=== PATIENT | female | born 1980 | race American Indian/Alaskan Native ===

== ENCOUNTER 2016-07-26 13:33 | Emergency (ER) | payer OTHER ==
[2016-07-26 13:45] VITALS: BMI 31.7
[2016-07-26] MEDS ORDERED: Sodium Chloride 0.9% 1,000 ML IV ONE (15:02)
[2016-07-26] MEDS ORDERED: Sodium Chloride 0.9% 1,000 ML ONE (15:22)
[2016-07-26 15:23] LABS: BASO # 0.1 K/uL (0.0-0.2); BASO % 0.6 % (0.0-2.0); EOS # 0.2 K/uL (0.0-0.7); EOS % 1.6 % (0.0-4.0); HEMATOCRIT 34.9 % (34.0-47.0); LYMPH # 3.8 K/uL (1.0-4.3); LYMPH % 38.3 % (20.0-40.0); MEAN CELL VOLUME 63.8 fL (81.0-99.0); MEAN CORPUSCULAR HEMOGLOBIN 20.9 pg (27.0-31.0); MEAN CORPUSCULAR HGB CONC 32.7 g/dL (33.0-37.0); MEAN PLATELET VOLUME 8.2 fL (7.2-11.7); MONO # 0.5 K/uL (0.0-0.8); MONO % 4.7 % (0.0-10.0); NRBC % 0.1 % (0.0-2.0); RED CELL DISTRIBUTION WIDTH 16.9 % (11.5-14.5)
[2016-07-26 15:30] LABS: CHLORIDE 98 mmol/L (98-107); SODIUM 139 mmol/L (132-148)
[2016-07-26 15:32] LABS: POTASSIUM 3.7 mmol/L (3.6-5.2)
[2016-07-26 15:34] LABS: ALB/GLOB RATIO 1.2 (1.0-2.1); ALKALINE PHOSPHATASE 67 U/L (38-126); ALT/SGPT 32 U/L (9-52); AST/SGOT 31 U/L (14-36); BILIRUBIN,TOTAL 0.7 mg/dL (0.2-1.3); BLOOD UREA NITROGEN 7 mg/dL (7-17); CALCIUM 8.8 mg/dl (8.6-10.4); CARBON DIOXIDE 27 mmol/L (22-30); GFR AFRICAN-AMERICAN > 60; GLUCOSE,RANDOM 162 mg/dL (65-105)
--- NOTE | 2016-07-26 15:47 | C.PDOC ---
History Of Present Illness The patient, a 36 y/o female whose PMHx includes Hypothyroidism and Sickle Cell Disease, presents to the ED for evaluation of chest pain which began last night. Patient states she was watching TV while lying in a supine position when she began experiencing a sharp, mid-sternal chest pain. She notes the pain radiates towards her right chest and is exacerbated with lying down and deep inspiration. Patient states her pain as been constant since its onset and denies experiencing similar symptoms in the past. Patient denies fever, chills, shortness of breath, sweats, nausea, and vomiting. Patient has not taken any medication for her symptoms. Time Seen by Provider: 07/26/16 14:58 Chief Complaint (Nursing): Chest Pain History Per: Patient History/Exam Limitations: no limitations Onset/Duration Of Symptoms: Hrs Current Symptoms Are (Timing): Still Present Quality: Sharp, "Pain" Associated Symptoms: denies: Nausea, Dyspnea, Diaphoresis Exacerbating Factors: Deep Breathing, Other (+lying down ) Additional History Per: Patient Past Medical History Reviewed: Historical Data, Nursing Documentation, Vital Signs Vital Signs: Last Vital Signs Temp 98 F 07/26/16 18:39 Pulse 77 07/26/16 18:39 Resp 18 07/26/16 18:39 BP 118/62 07/26/16 18:39 Pulse Ox 97 07/26/16 18:39 - Medical History PMH: Hypothyroidism, Sickle Cell Disease Surgical History: Cholecystectomy (03/2014) Family History: States: Hypertension Other Family History: Prostate cancer - Social History Hx Alcohol Use: No Hx Substance Use: No - Immunization History Hx Tetanus Toxoid Vaccination: Yes Hx Influenza Vaccination: Yes Hx Pneumococcal Vaccination: Yes Review Of Systems Except As Marked, All Systems Reviewed And Found Negative. Constitutional: Negative for: Fever, Chills, Sweats Cardiovascular: Positive for: Chest Pain Respiratory: Negative for: Shortness of Breath Gastrointestinal: Negative for: Nausea, Vomiting Physical Exam - Physical Exam Appears: Non-toxic, No Acute Distress, Other (+uncomfortable ) Skin: Normal Color, Warm, Dry Head: Atraumatic, Normacephalic Eye(s): bilateral: Normal Inspection, PERRL, EOMI Oral Mucosa: Moist Neck: Supple Chest: Symmetrical, No Deformity, Tenderness (right anterior chest to mid- sternal region on palpation ) Cardiovascular: Rhythm Regular, No Murmur Respiratory: Normal Breath Sounds, No Rales, No Rhonchi, No Wheezing Gastrointestinal/Abdominal: Tenderness (mild, epigastric region ), No Guarding, No Rebound Back: Normal Inspection, No Vertebral Tenderness, No Paraspinal Tenderness Extremity: Normal ROM, Capillary Refill (less than 2 seconds ) Neurological/Psych: Oriented x3, Normal Speech, Normal Cognition Gait: Steady ED Course And Treatment - Laboratory Results Result Diagrams: 07/26/16 15:19 07/26/16 15:19 Lab Interpretation: No Acute Changes ECG: Interpreted By Me ECG Rhythm: Sinus Rhythm, Nonspecific Changes ECG Interpretation: No Acute Changes O2 Sat by Pulse Oximetry: 99 (on RA) Pulse Ox Interpretation: Normal - Radiology CXR: Viewed By Me, Read By Radiologist CXR Interpretation: Yes: No Acute Disease - Other Rad CXR X-Ray: Interpreted by Me, Viewed By Me, Read By Radiologist Interpretation: Accession No. : [id number]. Patient Name / ID : SEAN JENKINS / [id number]. Exam Date : 07/26/2016 15:25:38 ( Approved ). Study Comment : Sex / Age : F / 36Y. Creator : Bobby Khan MD. Dictator : Bobby Khan MD. Compliance Review Officer : Table Cut Off Saw Operator : Bobby Khan MD. Approver2 : Report Date : 07/26/2016 15:53:41. My Comment : . PROCEDURE: CHEST RADIOGRAPH, 1 VIEW. HISTORY: chest pain. COMPARISON: None available. FINDINGS: LUNGS: Poor inspiration with low lung volumes mild crowded bronchovascular markings and mild bibasilar atelectasis. PLEURA: No pneumothorax or pleural fluid seen. CARDIOVASCULAR: Normal. OSSEOUS STRUCTURES: No significant abnormalities. VISUALIZED UPPER ABDOMEN: Normal. OTHER FINDINGS: None. IMPRESSION: Poor inspiration with low lung volumes mild crowded bronchovascular markings and mild bibasilar atelectasis Progress Note: labs, CXR, and EKG ordered and reviewed. Patient received Pepcid IV, Protonix IV, and IV Fluids. Reevaluation Time: 17:15 Reassessment Condition: Improved (But still c/o right sided chest pain under breast. Minimal relief after GI meds. No associated shortness of breath. Re- exam 6:55 patient feels better after IV Toradol. Chest wall pain now resolved.) Disposition Counseled Patient/Family Regarding: Studies Performed, Diagnosis, Need For Followup, Rx Given - Disposition Referrals: [facility] [Outside] Disposition: HOME/ ROUTINE Disposition Time: 18:57 Condition: IMPROVED Additional Instructions: Take OTC Prilosec and/or Pepcid if abdominal pain recurs. Prescriptions: Naproxen [Naprosyn] 500 mg PO BID PRN #30 tablet PRN Reason: Pain, Moderate (4-7) Instructions: Chest Wall Pain (ED) - Clinical Impression Clinical Impression: Chest wall pain - Scribe Statement The provider has reviewed the documentation as recorded by the Scribe (Miya Delong) Provider Attestation: All medical record entries made by the Scribe were at my direction and personally dictated by me. I have reviewed the chart and agree that the record accurately reflects my personal performance of the history, physical exam, medical decision making, and the department course for this patient. I have also personally directed, reviewed, and agree with the discharge instructions and disposition.
[2016-07-26 15:55] LABS: RBC URINE < 1 /hpf (0-3); URINE BACTERIA MOD (<OCC); URINE BILIRUBIN NEGATIVE (NEGATIVE); URINE BLOOD NEGATIVE (NEGATIVE); URINE COLOR Yellow (YELLOW); URINE GLUCOSE (UA) NORMAL (Normal); URINE KETONE NEGATIVE (NEGATIVE); URINE LEUKOCYTE ESTERASE NEG Leu/uL (Negative); URINE PROTEIN NEGATIVE (NEGATIVE); WBC URINE 2 /hpf (0-5)
--- NOTE | 2016-07-26 15:55 | RAD ---
PROCEDURE: CHEST RADIOGRAPH, 1 VIEW HISTORY: chest pain COMPARISON: None available. FINDINGS: LUNGS: Poor inspiration with low lung volumes mild crowded bronchovascular markings and mild bibasilar atelectasis PLEURA: No pneumothorax or pleural fluid seen. CARDIOVASCULAR: Normal. OSSEOUS STRUCTURES: No significant abnormalities. VISUALIZED UPPER ABDOMEN: Normal. OTHER FINDINGS: None. IMPRESSION: Poor inspiration with low lung volumes mild crowded bronchovascular markings and mild bibasilar atelectasis
[2016-07-26] MEDS ORDERED: Aluminum Hydroxide/Magnesium Hydroxide Susp (30 mL) PO STA (16:32)
[2016-07-26] MEDS ORDERED: Belladonna-Phenobarbital PO STA (16:32)
[2016-07-26] MEDS ORDERED: Belladonna-Phenobarbital ONE (16:36)
[2016-07-26] MEDS ORDERED: Alum-Mag Hydrox-Simethicone Susp (30 mL) ONE (16:36)
[2016-07-26 18:40] VITALS: PULSE 77; RESP 18; TEMP 98
[2016-07-26 18:43] VITALS: BP 118/62
[2016-07-26 18:59] VITALS: O2SAT 99
--- NOTE | 2016-07-27 16:46 | CARD ---
APPROVED REPORT EKG Measurement Heart [id number] <Conclusion> Normal sinus rhythm Minimal voltage criteria for LVH, may be normal variant Nonspecific T wave abnormality Abnormal ECG
== END 2016-07-26 19:13 | disposition home or self-care (01) ==
LOC: C.ER 13:33
DX: R07.89 Other chest pain (principal)
CPT/HCPCS: 71010; 80053; 81001; 83690; 84484; 84703; 85025; 85378; 93005; 96361; 96374; 96375; 99284; C9113; J1885; J7040

== ENCOUNTER 2017-02-14 00:19 | Inpatient (IN) | payer OTHER ==
[2017-02-14 00:19] VITALS: BMI 31.7
[2017-02-14] MEDS ORDERED: Sodium Chloride 0.9% 1,000 ML IV STA (01:20)
[2017-02-14] MEDS ORDERED: Sodium Chloride 0.9% 1,000 ML ONE (01:28)
[2017-02-14 01:30] LABS: BASO # 0.1 K/uL (0.0-0.2); BASO % 0.7 % (0.0-2.0); EOS # 0.2 K/uL (0.0-0.7); EOS % 1.8 % (0.0-4.0); HEMATOCRIT 32.8 % (34.0-47.0); LYMPH # 3.5 K/uL (1.0-4.3); LYMPH % 37.1 % (20.0-40.0); MEAN CORPUSCULAR HGB CONC 32.2 g/dL (33.0-37.0); MEAN PLATELET VOLUME 8.2 fL (7.2-11.7); MONO # 0.6 K/uL (0.0-0.8); MONO % 6.2 % (0.0-10.0); NRBC % 0.2 % (0.0-2.0); RED CELL DISTRIBUTION WIDTH 17.2 % (11.5-14.5); RETIC% 3.6 % (0.5-1.5); WHITE BLOOD COUNT 9.5 K/uL (4.8-10.8)
[2017-02-14 01:44] LABS: ALKALINE PHOSPHATASE 95 U/L (38-126); ALT/SGPT 92 U/L (9-52); AST/SGOT 60 U/L (14-36); BILIRUBIN,TOTAL 0.6 mg/dL (0.2-1.3); BLOOD UREA NITROGEN 9 mg/dL (7-17); CALCIUM 8.4 mg/dl (8.6-10.4); CARBON DIOXIDE 26 mmol/L (22-30); CHLORIDE 100 mmol/L (98-107); GFR AFRICAN-AMERICAN > 60; GLUCOSE,RANDOM 142 mg/dL (65-105); POTASSIUM 3.3 mmol/L (3.6-5.2); SODIUM 139 mmol/L (132-148); TOTAL PROTEIN 8.2 g/dL (6.3-8.3)
[2017-02-14 01:53] LABS: MEAN CELL VOLUME 65.2 fL (81.0-99.0)
[2017-02-14] MEDS ORDERED: Sodium Chloride 0.9% 500 ML IV ONE (03:00)
[2017-02-14] MEDS ORDERED: Aluminum Hydroxide/Magnesium Hydroxide Susp (30 mL) PO STA (03:46)
[2017-02-14] MEDS ORDERED: Aluminum Hydroxide/Magnesium Hydroxide Susp (30 mL) ONE (04:00)
--- NOTE | 2017-02-14 04:38 | C.PDOC ---
History Of Present Illness 37 year old female with a Hx of sickle cell presents to the ER feeling like she is having a sickle cell crisis with pain to the entire back and right lower extremity. Patient states the pain feels similar to her past crisis episodes. Patient has not been taking her percocet because she states it makes her feel sick. Denies trauma, chest pain, SOB, vomiting, diarrhea, or fever. Time Seen by Provider: 02/14/17 01:09 Chief Complaint (Nursing): Back Pain History Per: Patient History/Exam Limitations: no limitations Onset/Duration Of Symptoms: Hrs Current Symptoms Are (Timing): Still Present Quality Of Discomfort: Unable To Describe Associated Symptoms: None Exacerbating Factor(s): Nothing Recent travel outside of the [place]: No Past Medical History Reviewed: Historical Data, Nursing Documentation, Vital Signs Vital Signs: Last Vital Signs Temp 97.3 F L 02/14/17 05:31 Pulse 104 H 02/14/17 05:31 Resp 20 02/14/17 05:31 BP 112/71 02/14/17 05:31 Pulse Ox 94 L 02/14/17 05:31 - Medical History PMH: Anemia, Hypothyroidism, Sickle Cell Disease Surgical History: Cholecystectomy (03/2014) Family History: States: Hypertension - Social History Hx Alcohol Use: Yes Hx Substance Use: No - Immunization History Hx Tetanus Toxoid Vaccination: Yes Hx Influenza Vaccination: Yes Hx Pneumococcal Vaccination: Yes Review Of Systems Constitutional: Negative for: Fever, Chills Cardiovascular: Negative for: Chest Pain Respiratory: Negative for: Shortness of Breath Gastrointestinal: Negative for: Vomiting, Diarrhea Musculoskeletal: Positive for: Back Pain, Leg Pain Physical Exam - Physical Exam Appears: Non-toxic, No Acute Distress Skin: Normal Color, Warm, Dry Head: Atraumatic, Normacephalic Eye(s): bilateral: Normal Inspection Oral Mucosa: Moist Neck: Normal, Supple Chest: Symmetrical, No Tenderness Cardiovascular: Rhythm Regular Respiratory: Normal Breath Sounds, No Rales, No Rhonchi, No Wheezing Gastrointestinal/Abdominal: Soft, No Tenderness Extremity: Normal ROM (x4), No Tenderness Neurological/Psych: Oriented x3, Normal Speech ED Course And Treatment - Laboratory Results Result Diagrams: 02/14/17 01:23 02/14/17 01:23 O2 Sat by Pulse Oximetry: 96 (Room air) Pulse Ox Interpretation: Normal Progress Note: Blood work and urinalysis ordered. IV fluids, zofran, and dilaudid administered. Patient reports she is still having pain, dilaudid, IV fluids administered. 0530am: Pt still c/o pain after dilaudid IV x2. Will page Dr Vazquez for admission Reevaluation Time: 05:55 Reassessment Condition: Improved Disposition Counseled Patient/Family Regarding: Diagnosis, Need For Followup, Rx Given - Disposition Disposition: HOSPITALIZED Disposition Time: 05:56 Condition: GOOD Additional Instructions: Please follow up with Dr Vazquez this morning for follow up and pain management Return to ER if worse - POA Present On Arrival: None - Clinical Impression Clinical Impression: Sickle cell anemia with crisis - Scribe Statement The provider has reviewed the documentation as recorded by the Scribsean Herrera All medical record entries made by the Epifanioibsean were at my direction and personally dictated by me. I have reviewed the chart and agree that the record accurately reflects my personal performance of the history, physical exam, medical decision making, and the department course for this patient. I have also personally directed, reviewed, and agree with the discharge instructions and disposition. Decision To Admit - Pt Status Changed To: Hospital Disposition Of: Inpatient - Admit Certification Admit to Inpatient:: After my assessment, the patient will require hospitalization for at least two midnights. This is because of the severity of symptoms shown, intensity of services needed, and/or the medical risk in this patient being treated as an outpatient. - InPatient: Physician Admission Certification:: isabelle Dutton - . Bed Request Type: Regular Patient Diagnosis: Sickle cell anemia with crisis
[2017-02-14 05:40] LABS: RBC URINE < 1 /hpf (0-3); URINE BILIRUBIN NEGATIVE (NEGATIVE); URINE BLOOD NEGATIVE (NEGATIVE); URINE COLOR Yellow (YELLOW); URINE GLUCOSE (UA) 3+ mg/dL (Normal); URINE KETONE NEGATIVE (NEGATIVE); URINE LEUKOCYTE ESTERASE NEG Leu/uL (Negative); URINE PROTEIN NEGATIVE (NEGATIVE); WBC URINE 1 /hpf (0-5)
[2017-02-14] MEDS: Potassium Ch 20mEq in D5-1/2NS 1,000 ML IV SCH ×3 (06:10→22:29)
[2017-02-14] MEDS: Levothyroxine 88 MCG TAB PO SCH (06:21)
--- NOTE | 2017-02-14 09:06 | CP.PCM.HP ---
History of Present Illness - History of Present Illness History of Present Illness: CC: Severe pain 37 y/o female with Sickle cell and Hypothyroidism. Patient has v been having pain x 2-3 days but had gotten worse. Pt has severe pain all over mostly on upper back and felt weak/ fatigue. Usually get crisis 2-3X/yr. Present on Admission - Present on Admission Any Indicators Present on Admission: Yes History of DVT/PE: No History of Uncontrolled Diabetes: No Urinary Catheter: No Decubitus Ulcer Present: No Review of Systems - Review of Systems Systems not reviewed;Unavailable: Acuity of Condition - Constitutional Constitutional: absent: Anorexia - EENT Eyes: absent: Change in Vision, Loss of Peripheral Vision, Sees Flashes, Loss of Vision Nose/Mouth/Throat: absent: Epistaxis, Nose Pain, Change in Voice, Dysphagia, Hoarsness, Odynophagia - Cardiovascular Cardiovascular: Dyspnea on Exertion. absent: Chest Pain, Diaphoresis, Edema, Leg Edema, Syncope - Respiratory Respiratory: absent: Cough, Pain on Inspiration, Change in Mucous Color - Gastrointestinal Gastrointestinal: absent: Abdominal Pain, Dyspepsia, Dysphagia, Loose Stools, Melena - Genitourinary Genitourinary: absent: Difficulty Urinating, Dysuria, Nocturia, Freq UTI - Musculoskeletal Musculoskeletal: Arthralgias, Back Pain, Limited Range of Motion, Muscle Weakness, Myalgias, Neck Pain. absent: Atrophy, Joint Swelling Past Patient History - Infectious Disease Hx of Infectious Diseases: None - Past Social History Smoking Status: Former Smoker - ENDOCRINE/METABOLIC Hx Hypothyroidism: Yes - HEMATOLOGICAL/ONCOLOGICAL Hx Anemia: Yes Hx Sickle Cell Disease: Yes - PSYCHIATRIC Hx Substance Use: No - SURGICAL HISTORY Hx Cholecystectomy: Yes (03/2014) - ANESTHESIA Hx Anesthesia: Yes Hx Anesthesia Reactions: No Meds Allergies/Adverse Reactions: Allergies Allergy/AdvReac Type Severity Reaction Status Date / Time jacobsen Allergy Severe ANAPHYLAXIS Verified 02/14/17 00:26 peas Allergy Severe ANAPHYLAXIS Verified 02/14/17 00:26 mushroom Allergy Intermediate RASH Verified 02/14/17 00:26 Physical Exam - Constitutional Appears: No Acute Distress - Eye Exam Eye Exam: Normal appearance - ENT Exam ENT Exam: Mucous Membranes Dry - Neck Exam Neck exam: Positive for: Full Rom. Negative for: Lymphadenopathy, Normal Inspection, Thyromegaly - Respiratory Exam Respiratory Exam: absent: Rales, Rhonchi, Wheezes - Cardiovascular Exam Cardiovascular Exam: REGULAR RHYTHM, +S1, +S2. absent: Diastolic murmur, Gallop , JVD, Systolic Murmur - GI/Abdominal Exam GI & Abdominal Exam: Soft. absent: Mass, Tenderness - Extremities Exam Extremities exam: Positive for: full ROM, normal capillary refill. Negative for : calf tenderness, joint swelling, pedal edema Results - Vital Signs Recent Vital Signs: Last Vital Signs Temp 97.8 F 02/14/17 06:53 Pulse 123 H 02/14/17 08:01 Resp 20 02/14/17 08:01 BP 144/87 02/14/17 08:01 Pulse Ox 94 L 02/14/17 08:01 - Labs Result Diagrams: 02/14/17 01:23 02/14/17 01:23 Labs: Laboratory Results - last 24 hr 02/14/17 02/14/17 02/14/17 01:23 01:23 05:31 WBC 9.5 RBC 5.03 Hgb 10.6 L Hct 32.8 L MCV 65.2 L MCH 21.0 L MCHC 32.2 L RDW 17.2 H Plt Count 264 MPV 8.2 Neut % (Auto) 54.2 Lymph % (Auto) 37.1 Slope % (Auto) 6.2 Eos % (Auto) 1.8 Baso % (Auto) 0.7 Neut # 5.1 Lymph # 3.5 Slope # 0.6 Eos # 0.2 Baso # 0.1 Retic Count 3.6 H Sodium 139 Potassium 3.3 L Chloride 100 Carbon Dioxide 26 Anion Gap 17 BUN 9 Creatinine 0.6 L Est GFR ( Amer) > 60 Est GFR (Non-Af Amer) > 60 Random Glucose 142 H Calcium 8.4 L Total Bilirubin 0.6 AST 60 H ALT 92 H D Alkaline Phosphatase 95 Total Protein 8.2 Albumin 4.2 Globulin 4.1 H Albumin/Globulin Ratio 1.0 Urine Color Yellow Urine Clarity Clear Urine pH 7.0 Ur Specific Vida 1.007 Urine Protein Negative Urine Glucose (UA) 3+ H Urine Ketones Negative Urine Blood Negative Urine Nitrate Negative Urine Bilirubin Negative Urine Urobilinogen 2.0 H Ur Leukocyte Esterase Neg Urine WBC (Auto) 1 Urine RBC (Auto) < 1 Ur Squamous Epith Cells 4 Urine HCG, Qual Negative Assessment & Plan - Assessment and Plan (Free Text) Assessment: Sickle Cell PainCrisis; Hypokalemia Hypothyroidism Conr OPD meds/ supportive care
[2017-02-14] MEDS: Enoxaparin 40 mg Syringe SC SCH (10:20)
[2017-02-15] MEDS: Potassium Ch 20mEq in D5-1/2NS 1,000 ML IV SCH (06:12)
[2017-02-15] MEDS: Levothyroxine 88 MCG TAB PO SCH (06:12)
[2017-02-15 06:58] LABS: BASO # 0.1 K/uL (0.0-0.2); BASO % 0.7 % (0.0-2.0); EOS # 0.1 K/uL (0.0-0.7); EOS % 0.6 % (0.0-4.0); HEMATOCRIT 27.6 % (34.0-47.0); LYMPH # 4.8 K/uL (1.0-4.3); LYMPH % 22.5 % (20.0-40.0); MEAN CELL VOLUME 65.9 fL (81.0-99.0); MEAN CORPUSCULAR HEMOGLOBIN 21.4 pg (27.0-31.0); MEAN CORPUSCULAR HGB CONC 32.5 g/dL (33.0-37.0); MEAN PLATELET VOLUME 7.5 fL (7.2-11.7); MONO # 1.3 K/uL (0.0-0.8); MONO % 6.1 % (0.0-10.0); NRBC % 2.7 % (0.0-2.0); RED CELL DISTRIBUTION WIDTH 17.6 % (11.5-14.5); WHITE BLOOD COUNT 21.4 K/uL (4.8-10.8)
[2017-02-15 07:51] LABS: ALKALINE PHOSPHATASE 79 U/L (38-126); ALT/SGPT 91 U/L (9-52); AST/SGOT 80 U/L (14-36); BLOOD UREA NITROGEN 6 mg/dL (7-17); CALCIUM 8.3 mg/dl (8.6-10.4); CARBON DIOXIDE 33 mmol/L (22-30); CHLORIDE 98 mmol/L (98-107); GFR AFRICAN-AMERICAN > 60; GLUCOSE,RANDOM 121 mg/dL (65-105); SODIUM 132 mmol/L (132-148)
[2017-02-15] MEDS: Enoxaparin 40 mg Syringe SC SCH (09:22)
--- NOTE | 2017-02-15 09:41 | CP.PCM.PN ---
Subjective - Date & Time of Evaluation Date of Evaluation: 02/15/17 Time of Evaluation: 08:21 - Subjective Subjective: Pt (+) hannah increase pain; cough w/ white mucus No CP, feels SOB, no edema, no diarrhea, no dysuria Objective - Vital Signs/Intake and Output Vital Signs (last 24 hours): Temp Pulse Resp BP Pulse Ox 98.1 F 109 H 20 135/94 H 99 02/15/17 00:00 02/15/17 00:00 02/15/17 00:00 02/15/17 00:00 02/15/17 00:00 Intake and Output: 02/15/17 02/15/17 06:59 18:59 Intake Total 2900 Balance 2900 - Medications Medications: Current Medications Enoxaparin Sodium (Lovenox) 40 mg SC DAILY [facility] Last Admin: 02/15/17 09:22 Dose: 40 mg Fentanyl (Duragesic) 1 patch TD Q72H [facility] Last Admin: 02/14/17 17:01 Dose: 1 patch Folic Acid (Folic Acid) 1 mg PO DAILY [facility] Last Admin: 02/15/17 09:22 Dose: 1 mg Hydromorphone HCl (Dilaudid) 2 mg IVP Q3H PRN PRN Reason: Pain, severe (8-10) Last Admin: 02/15/17 09:17 Dose: 2 mg Ceftriaxone Sodium 1 gm/ (Sodium Chloride) 100 mls @ 100 mls/hr IVPB DAILY [facility] Levothyroxine Sodium (Levothroid) 100 mcg PO DAILY@0630 [facility] Montelukast Sodium (Singulair) 10 mg PO HS [facility] Ondansetron HCl (Zofran Inj) 4 mg IVP Q6 PRN PRN Reason: Nausea/Vomiting Last Admin: 02/15/17 05:57 Dose: 4 mg Pantoprazole Sodium (Protonix Inj) 40 mg IVP DAILY [facility] Last Admin: 02/15/17 09:20 Dose: 40 mg - Labs Labs: 02/15/17 06:49 02/15/17 06:49 - Constitutional Appears: No Acute Distress - Eye Exam Eye Exam: Normal appearance - ENT Exam ENT Exam: Mucous Membranes Moist - Neck Exam Neck Exam: absent: Lymphadenopathy, Normal Inspection - Respiratory Exam Respiratory Exam: Rhonchi. absent: Decreased Breath Sounds, Rales, Wheezes - Cardiovascular Exam Cardiovascular Exam: REGULAR RHYTHM, +S1, +S2. absent: Gallop, JVD - GI/Abdominal Exam GI & Abdominal Exam: Soft. absent: Tenderness, Mass - Extremities Exam Extremities Exam: Full ROM, Normal Capillary Refill. absent: Calf Tenderness, Joint Swelling, Tenderness Assessment and Plan - Assessment and Plan (Free Text) Assessment: Inc WBC ? reactive vs infection; Sickle Cell Pain Crisis Hypokalemia - corrected Cont meds; inc pain meds Lan eval CXR; Rocephin for now
--- NOTE | 2017-02-15 10:11 | RAD ---
HISTORY: inc WBC COMPARISON: 07/26/2016 FINDINGS: LUNGS: Shallow lung volumes. No consolidation. Central pulmonary vasculature appears borderline increased PLEURA: No significant pleural effusion identified, no pneumothorax apparent. CARDIOVASCULAR: Borderline minimal cardiomegaly. Mild central pulmonary venous congestion appears borderline increased. These appearances are likely in part due to shallow lung inspiration and large body habitus OSSEOUS STRUCTURES: No significant abnormalities. VISUALIZED UPPER ABDOMEN: Normal. OTHER FINDINGS: None. IMPRESSION: No consolidative infiltrate or atelectasis. Shallow lung volumes likely in part accentuating the heart central pulmonary vasculature.
[2017-02-15] MEDS ORDERED: Sodium Chloride 0.9% 500 ML IV ONE (11:11)
[2017-02-15] MEDS: Dextrose 5%/0.45% NS 1,000 ML IV SCH (19:30)
[2017-02-16] MEDS: Dextrose 5%/0.45% NS 1,000 ML IV SCH ×2 (07:12→16:05)
[2017-02-16] MEDS: Levothyroxine 100 MCG TAB PO SCH (07:45)
--- NOTE | 2017-02-16 08:30 | CP.PCM.PN ---
Subjective - Date & Time of Evaluation Date of Evaluation: 02/16/17 Time of Evaluation: 08:15 - Subjective Subjective: Pt has pain; (+) feels weak. Vaibhav dec cough but dry/ No CP, no SOB, no edema, no palpitation, no n/v (+) constipated Objective - Vital Signs/Intake and Output Vital Signs (last 24 hours): Temp Pulse Resp BP Pulse Ox 98 F 113 H 20 129/80 97 02/15/17 15:11 02/15/17 15:11 02/15/17 15:11 02/15/17 15:11 02/15/17 15:11 Intake and Output: 02/16/17 02/16/17 06:59 18:59 Intake Total 1550 Balance 1550 - Medications Medications: Current Medications Enoxaparin Sodium (Lovenox) 40 mg SC DAILY [facility] Last Admin: 02/15/17 09:22 Dose: 40 mg Fentanyl (Duragesic) 1 patch TD Q72H [facility] Last Admin: 02/15/17 11:46 Dose: 1 patch Folic Acid (Folic Acid) 1 mg PO DAILY [facility] Last Admin: 02/15/17 09:22 Dose: 1 mg Hydromorphone HCl (Dilaudid) 2 mg IVP Q3H PRN PRN Reason: Pain, severe (8-10) Last Admin: 02/16/17 07:07 Dose: 2 mg Ceftriaxone Sodium 1 gm/ (Sodium Chloride) 100 mls @ 100 mls/hr IVPB DAILY [facility] Last Admin: 02/15/17 11:38 Dose: 100 mls/hr Dextrose/Sodium Chloride (Dextrose 5%/0.45% Ns 1000 Ml) 1,000 mls @ 125 mls/hr IV .Q8H [facility] Last Admin: 02/16/17 07:12 Dose: 125 mls/hr Levothyroxine Sodium (Synthroid) 100 mcg PO DAILY@0630 [facility] Montelukast Sodium (Singulair) 10 mg PO HS [facility] Last Admin: 02/15/17 21:45 Dose: 10 mg Ondansetron HCl (Zofran Inj) 4 mg IVP Q6 PRN PRN Reason: Nausea/Vomiting Last Admin: 02/15/17 21:44 Dose: 4 mg Pantoprazole Sodium (Protonix Inj) 40 mg IVP DAILY [facility] Last Admin: 02/15/17 09:20 Dose: 40 mg Polyethylene Glycol (Miralax) 17 gm PO DAILY [facility] - Labs Labs: 02/15/17 06:49 02/15/17 06:49 - Constitutional Appears: No Acute Distress - Eye Exam Eye Exam: Normal appearance - ENT Exam ENT Exam: Mucous Membranes Moist - Neck Exam Neck Exam: Full ROM. absent: Lymphadenopathy, Normal Inspection, Thyromegaly - Respiratory Exam Respiratory Exam: Decreased Breath Sounds. absent: Rales, Rhonchi, Wheezes - Cardiovascular Exam Cardiovascular Exam: REGULAR RHYTHM, +S1, +S2. absent: Gallop - GI/Abdominal Exam GI & Abdominal Exam: Soft. absent: Tenderness, Mass - Extremities Exam Extremities Exam: Full ROM, Normal Capillary Refill. absent: Calf Tenderness, Joint Swelling Assessment and Plan - Assessment and Plan (Free Text) Assessment: Sickle Cell pain Crisis Leukopenia Cont meds/ supportive care
[2017-02-16] MEDS: POLYETHYLENE GLYCOL 3350 17 GM/Dose PACKET PO SCH (10:46)
[2017-02-16] MEDS: Enoxaparin 40 mg Syringe SC SCH (10:46)
[2017-02-16 11:35] LABS: BASO # 0.1 K/uL (0.0-0.2); BASO % 0.8 % (0.0-2.0); EOS # 0.2 K/uL (0.0-0.7); EOS % 1.7 % (0.0-4.0); HEMATOCRIT 27.6 % (34.0-47.0); LYMPH # 1.8 K/uL (1.0-4.3); LYMPH % 15.4 % (20.0-40.0); MEAN CORPUSCULAR HEMOGLOBIN 21.3 pg (27.0-31.0); MEAN CORPUSCULAR HGB CONC 31.8 g/dL (33.0-37.0); MEAN PLATELET VOLUME 7.5 fL (7.2-11.7); MONO # 0.6 K/uL (0.0-0.8); MONO % 5.4 % (0.0-10.0); NRBC % 0.7 % (0.0-2.0); RED CELL DISTRIBUTION WIDTH 17.8 % (11.5-14.5); WHITE BLOOD COUNT 11.4 K/uL (4.8-10.8)
[2017-02-16 11:51] LABS: BLOOD UREA NITROGEN 6 mg/dL (7-17); CARBON DIOXIDE 36 mmol/L (22-30); CHLORIDE 95 mmol/L (98-107); GFR AFRICAN-AMERICAN > 60; GLUCOSE,RANDOM 183 mg/dL (65-105); POTASSIUM 4.1 mmol/L (3.6-5.2); SODIUM 137 mmol/L (132-148)
--- NOTE | 2017-02-16 18:37 | CP.PCM.CON ---
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 The patient says she has been managing her pain at home without significant pain meds, gets admitted a few times a year usually at [place]. 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 PMHx- As above, currently on no home meds. Cholecystectomy, no prior transfusions. Has history of irregular periods, was on BCPs until recently. Has one daughter who is 18y0 Past Patient History - Infectious Disease Hx of Infectious Diseases: None - Past Social History Smoking Status: Former Smoker - ENDOCRINE/METABOLIC Hx Hypothyroidism: Yes - HEMATOLOGICAL/ONCOLOGICAL Hx Anemia: Yes Hx Sickle Cell Disease: Yes - MUSCULOSKELETAL/RHEUMATOLOGICAL Hx Falls: No - PSYCHIATRIC Hx Substance Use: No - SURGICAL HISTORY Hx Cholecystectomy: Yes (03/2014) - ANESTHESIA Hx Anesthesia: Yes Hx Anesthesia Reactions: No Meds Allergies/Adverse Reactions: Allergies Allergy/AdvReac Type Severity Reaction Status Date / Time jacobsen Allergy Severe ANAPHYLAXIS Verified 02/14/17 00:26 peas Allergy Severe ANAPHYLAXIS Verified 02/14/17 00:26 mushroom Allergy Intermediate RASH Verified 02/14/17 00:26 - Medications Medications: Current Medications Enoxaparin Sodium (Lovenox) 40 mg SC DAILY [facility] Last Admin: 02/16/17 10:46 Dose: 40 mg Fentanyl (Duragesic) 1 patch TD Q72H [facility] Last Admin: 02/15/17 11:46 Dose: 1 patch Folic Acid (Folic Acid) 1 mg PO DAILY [facility] Last Admin: 02/16/17 10:47 Dose: 1 mg Hydromorphone HCl (Dilaudid) 2 mg IVP Q3H PRN PRN Reason: Pain, severe (8-10) Last Admin: 02/16/17 17:12 Dose: 2 mg Ceftriaxone Sodium 1 gm/ (Sodium Chloride) 100 mls @ 100 mls/hr IVPB DAILY [facility] Last Admin: 02/16/17 10:46 Dose: 100 mls/hr Dextrose/Sodium Chloride (Dextrose 5%/0.45% Ns 1000 Ml) 1,000 mls @ 125 mls/hr IV .Q8H [facility] Last Admin: 02/16/17 16:05 Dose: 125 mls/hr Ketorolac Tromethamine (Toradol) 30 mg IVP Q8H [facility] Stop: 02/17/17 23:59 Levothyroxine Sodium (Synthroid) 100 mcg PO DAILY@0630 [facility] Last Admin: 02/16/17 07:45 Dose: 100 mcg Magnesium Hydroxide (Milk Of Magnesia) 30 ml PO DAILY [facility] Stop: 02/18/17 18:26 Montelukast Sodium (Singulair) 10 mg PO HS [facility] Last Admin: 02/15/17 21:45 Dose: 10 mg Ondansetron HCl (Zofran Inj) 4 mg IVP Q6 PRN PRN Reason: Nausea/Vomiting Last Admin: 02/15/17 21:44 Dose: 4 mg Pantoprazole Sodium (Protonix Inj) 40 mg IVP DAILY [facility] Last Admin: 02/16/17 10:46 Dose: 40 mg Polyethylene Glycol (Miralax) 17 gm PO DAILY [facility] Last Admin: 02/16/17 10:46 Dose: 17 gm Results - Vital Signs Recent Vital Signs: Last Vital Signs Temp 98.1 F 02/16/17 16:00 Pulse 107 H 02/16/17 16:00 Resp 20 02/16/17 16:00 BP 131/88 02/16/17 16:00 Pulse Ox 95 02/16/17 16:00 - Labs Result Diagrams: 02/16/17 11:26 02/16/17 11:26 Labs: Laboratory Results - last 24 hr 02/16/17 02/16/17 02/16/17 11:26 11:26 11:26 WBC 11.4 H RBC 4.13 Hgb 8.8 L Hct 27.6 L MCV 67.0 L MCH 21.3 L MCHC 31.8 L RDW 17.8 H Plt Count 176 MPV 7.5 Neut % (Auto) 76.7 H Lymph % (Auto) 15.4 L [place] % (Auto) 5.4 Eos % (Auto) 1.7 Baso % (Auto) 0.8 Neut # 8.7 H Lymph # 1.8 [place] # 0.6 Eos # 0.2 Baso # 0.1 Retic Count 5.6 H D Sodium 137 Potassium 4.1 Chloride 95 L Carbon Dioxide 36 H Anion Gap 9 L BUN 6 L Creatinine 0.6 L Est GFR ( Amer) > 60 Est GFR (Non-Af Amer) > 60 Random Glucose 183 H Calcium 8.0 L Assessment & Plan (1) Sickle cell anemia with crisis Assessment and Plan: 56 yo woman with history of sickle thalassemia, with pain crises every 3-4 months, currently on no home meds. Agree with IVF, analgesia, po folic acid. Will add antiinflammatory and MOM for persistent constipation. Check hemoglobin electrophoresis and iron stores Status: Acute
[2017-02-17] MEDS: Dextrose 5%/0.45% NS 1,000 ML IV SCH ×5 (01:03→21:28)
[2017-02-17] MEDS: Levothyroxine 100 MCG TAB PO SCH (06:07)
--- NOTE | 2017-02-17 08:13 | CP.PCM.PN ---
Subjective - Date & Time of Evaluation Date of Evaluation: 02/17/17 Time of Evaluation: 07:50 - Subjective Subjective: Pt pain slight better; able to go to toilet No CP, no more cough, no edema; Still constipated but poor p.o. intake since admission no n/v, no dysuria Objective - Vital Signs/Intake and Output Vital Signs (last 24 hours): Temp Pulse Resp BP Pulse Ox 98.2 F 103 H 20 124/87 97 02/17/17 07:59 02/17/17 07:59 02/17/17 07:59 02/17/17 07:59 02/17/17 07:59 - Medications Medications: Current Medications Enoxaparin Sodium (Lovenox) 40 mg SC DAILY [facility] Last Admin: 02/16/17 10:46 Dose: 40 mg Fentanyl (Duragesic) 1 patch TD Q72H [facility] Last Admin: 02/15/17 11:46 Dose: 1 patch Folic Acid (Folic Acid) 1 mg PO DAILY [facility] Last Admin: 02/16/17 10:47 Dose: 1 mg Hydromorphone HCl (Dilaudid) 2 mg IVP Q3H PRN PRN Reason: Pain, severe (8-10) Last Admin: 02/17/17 06:02 Dose: 2 mg Dextrose/Sodium Chloride (Dextrose 5%/0.45% Ns 1000 Ml) 1,000 mls @ 125 mls/hr IV .Q8H [facility] Last Admin: 02/17/17 01:03 Dose: 125 mls/hr Ketorolac Tromethamine (Toradol) 30 mg IVP Q8H [facility] Stop: 02/17/17 23:59 Last Admin: 02/16/17 21:00 Dose: 30 mg Levothyroxine Sodium (Synthroid) 100 mcg PO DAILY@0630 [facility] Last Admin: 02/17/17 06:07 Dose: 100 mcg Magnesium Hydroxide (Milk Of Magnesia) 30 ml PO DAILY [facility] Stop: 02/18/17 18:26 Montelukast Sodium (Singulair) 10 mg PO HS [facility] Last Admin: 02/16/17 21:01 Dose: 10 mg Ondansetron HCl (Zofran Inj) 4 mg IVP Q6 PRN PRN Reason: Nausea/Vomiting Last Admin: 02/15/17 21:44 Dose: 4 mg Pantoprazole Sodium (Protonix Ec Tab) 40 mg PO DAILY [facility] Polyethylene Glycol (Miralax) 17 gm PO DAILY [facility] Last Admin: 02/16/17 10:46 Dose: 17 gm - Labs Labs: 02/16/17 11:26 02/16/17 11:26 - Constitutional Appears: No Acute Distress - Eye Exam Eye Exam: Normal appearance - ENT Exam ENT Exam: Mucous Membranes Moist - Neck Exam Neck Exam: Full ROM. absent: Lymphadenopathy, Normal Inspection, Thyromegaly - Respiratory Exam Respiratory Exam: absent: Decreased Breath Sounds, Rales, Rhonchi, Wheezes - Cardiovascular Exam Cardiovascular Exam: REGULAR RHYTHM, +S1, +S2, Murmur. absent: Gallop, JVD, Rubs - GI/Abdominal Exam GI & Abdominal Exam: Soft. absent: Tenderness, Mass - Extremities Exam Extremities Exam: Full ROM, Normal Capillary Refill. absent: Calf Tenderness, Joint Swelling, Pedal Edema Assessment and Plan - Assessment and Plan (Free Text) Assessment: Sickle pain crisis; Leukocytosis - improve Constipated Cont meds/ supportive care Stop Rocephin c/o no sign of infection
[2017-02-17] MEDS: Pantoprazole 40 mg EC Tab PO SCH (09:21)
[2017-02-17] MEDS: POLYETHYLENE GLYCOL 3350 17 GM/Dose PACKET PO SCH (09:21)
[2017-02-17] MEDS: Enoxaparin 40 mg Syringe SC SCH (09:21)
[2017-02-17] MEDS: Magnesium Hydroxide Susp 30 ml UD PO SCH (19:56)
[2017-02-18] MEDS: Dextrose 5%/0.45% NS 1,000 ML IV SCH ×3 (03:41→23:13)
[2017-02-18 06:20] LABS: HEMATOCRIT 28.3 % (35.0-45.0); HEMOGLOBIN 8.7 g/dL (11.7-15.5)
[2017-02-18] MEDS: Levothyroxine 100 MCG TAB PO SCH (06:29)
[2017-02-18 07:39] LABS: HEMATOCRIT 24.7 % (34.0-47.0); MEAN CELL VOLUME 67.6 fL (81.0-99.0); MEAN CORPUSCULAR HGB CONC 32.5 g/dL (33.0-37.0); MEAN PLATELET VOLUME 7.4 fL (7.2-11.7); RED CELL DISTRIBUTION WIDTH 18.1 % (11.5-14.5)
[2017-02-18 08:06] LABS: ALKALINE PHOSPHATASE 106 U/L (38-126); ALT/SGPT 91 U/L (9-52); AST/SGOT 62 U/L (14-36); BILIRUBIN,TOTAL 1.3 mg/dL (0.2-1.3); BLOOD UREA NITROGEN 7 mg/dL (7-17); CALCIUM 8.1 mg/dl (8.6-10.4); CARBON DIOXIDE 36 mmol/L (22-30); CHLORIDE 96 mmol/L (98-107); GFR AFRICAN-AMERICAN > 60; GLUCOSE,RANDOM 122 mg/dL (65-105); POTASSIUM 3.8 mmol/L (3.6-5.2); SODIUM 139 mmol/L (132-148); TOTAL PROTEIN 7.7 g/dL (6.3-8.3)
[2017-02-18] MEDS: POLYETHYLENE GLYCOL 3350 17 GM/Dose PACKET PO SCH (09:44)
[2017-02-18] MEDS: Pantoprazole 40 mg EC Tab PO SCH (09:44)
[2017-02-18] MEDS: Enoxaparin 40 mg Syringe SC SCH (09:44)
[2017-02-18] MEDS: Magnesium Hydroxide Susp 30 ml UD PO SCH (09:44)
[2017-02-18] MEDS ORDERED: Magnesium Hydroxide Susp 30 ml UD PO ONE (16:00)
[2017-02-19] MEDS: Levothyroxine 100 MCG TAB PO SCH (06:22)
[2017-02-19] MEDS: Dextrose 5%/0.45% NS 1,000 ML IV SCH ×2 (06:31→13:56)
[2017-02-19 07:51] LABS: BASO # 0.1 K/uL (0.0-0.2); BASO % 0.5 % (0.0-2.0); EOS # 0.5 K/uL (0.0-0.7); HEMATOCRIT 30.7 % (34.0-47.0); LYMPH # 3.7 K/uL (1.0-4.3); LYMPH % 28.5 % (20.0-40.0); MEAN CORPUSCULAR HEMOGLOBIN 22.8 pg (27.0-31.0); MEAN CORPUSCULAR HGB CONC 32.5 g/dL (33.0-37.0); MEAN PLATELET VOLUME 7.3 fL (7.2-11.7); MONO # 0.7 K/uL (0.0-0.8); MONO % 5.2 % (0.0-10.0); NRBC % 0.6 % (0.0-2.0); RED CELL DISTRIBUTION WIDTH 21.2 % (11.5-14.5); WHITE BLOOD COUNT 12.9 K/uL (4.8-10.8)
[2017-02-19 08:06] LABS: RETIC% 6.7 % (0.5-1.5)
[2017-02-19 08:33] LABS: ALB/GLOB RATIO 1.2 (1.0-2.1); ALKALINE PHOSPHATASE 141 U/L (38-126); ALT/SGPT 91 U/L (9-52); AST/SGOT 62 U/L (14-36); BLOOD UREA NITROGEN 7 mg/dL (7-17); CALCIUM 8.1 mg/dl (8.6-10.4); CARBON DIOXIDE 37 mmol/L (22-30); CHLORIDE 97 mmol/L (98-107); GFR AFRICAN-AMERICAN > 60; GLUCOSE,RANDOM 150 mg/dL (65-105); POTASSIUM 4.6 mmol/L (3.6-5.2); SODIUM 139 mmol/L (132-148); TOTAL PROTEIN 7.6 g/dL (6.3-8.3)
[2017-02-19] MEDS: Enoxaparin 40 mg Syringe SC SCH (09:40)
[2017-02-19] MEDS: POLYETHYLENE GLYCOL 3350 17 GM/Dose PACKET PO SCH (09:40)
[2017-02-19] MEDS: Pantoprazole 40 mg EC Tab PO SCH (09:40)
--- NOTE | 2017-02-19 09:50 | CP.PCM.PN ---
Subjective - Date & Time of Evaluation Date of Evaluation: 02/19/17 Time of Evaluation: 09:20 - Subjective Subjective: Pt had formed bowel movement last night; then 2 watery stool. Ate her toast this AM. No CP, no SOB, no edema, no cough. Pain is better; 6/10 but hannah increase just going to the bath room. Had transfusion yesterday. Objective - Vital Signs/Intake and Output Vital Signs (last 24 hours): Temp Pulse Resp BP Pulse Ox 98 F 96 H 20 127/89 97 02/19/17 06:20 02/19/17 06:20 02/19/17 06:20 02/19/17 08:28 02/19/17 06:20 Intake and Output: 02/19/17 02/19/17 06:59 18:59 Intake Total 1260 Balance 1260 - Medications Medications: Current Medications Enoxaparin Sodium (Lovenox) 40 mg SC DAILY [facility] Last Admin: 02/19/17 09:40 Dose: 40 mg Fentanyl (Duragesic) 1 patch TD Q72H [facility] Last Admin: 02/18/17 12:42 Dose: 1 patch Folic Acid (Folic Acid) 1 mg PO DAILY [facility] Last Admin: 02/19/17 09:40 Dose: 1 mg Hydromorphone HCl (Dilaudid) 2 mg IVP Q3H PRN PRN Reason: Pain, severe (8-10) Last Admin: 02/19/17 09:38 Dose: 2 mg Dextrose/Sodium Chloride (Dextrose 5%/0.45% Ns 1000 Ml) 1,000 mls @ 75 mls/hr IV .[id number] [facility] Last Admin: 02/19/17 06:31 Dose: 75 mls/hr Levothyroxine Sodium (Synthroid) 100 mcg PO DAILY@0630 [facility] Last Admin: 02/19/17 06:22 Dose: 100 mcg Montelukast Sodium (Singulair) 10 mg PO HS [facility] Last Admin: 02/18/17 21:11 Dose: 10 mg Ondansetron HCl (Zofran Inj) 4 mg IVP Q6 PRN PRN Reason: Nausea/Vomiting Last Admin: 02/17/17 21:30 Dose: 4 mg - Labs Labs: 02/19/17 07:35 02/19/17 07:35 - Constitutional Appears: No Acute Distress - Eye Exam Eye Exam: absent: Normal appearance - ENT Exam ENT Exam: Mucous Membranes Moist - Neck Exam Neck Exam: Full ROM. absent: Lymphadenopathy, Normal Inspection, Thyromegaly - Respiratory Exam Respiratory Exam: absent: Decreased Breath Sounds, Rales - Cardiovascular Exam Cardiovascular Exam: REGULAR RHYTHM, +S1, +S2. absent: Gallop, JVD, Murmur - GI/Abdominal Exam GI & Abdominal Exam: Soft. absent: Tenderness, Mass - Extremities Exam Extremities Exam: Full ROM. absent: Calf Tenderness, Joint Swelling, Normal Capillary Refill, Pedal Edema Assessment and Plan - Assessment and Plan (Free Text) Assessment: Sickle Cell pain Crisis Hypothyroidism; Constipation - improve Cont meds Stop MOM, Protonix and Miralax.
--- NOTE | 2017-02-19 17:33 | CP.PCM.PN ---
Subjective - Date & Time of Evaluation Date of Evaluation: 02/19/17 Time of Evaluation: 17:24 - Subjective Subjective: The patient sas she is feeling better, some diarrhea, otherwise starting to ambulate. Objective - Vital Signs/Intake and Output Vital Signs (last 24 hours): Temp Pulse Resp BP Pulse Ox 97.6 F 105 H 20 130/89 98 02/19/17 16:05 02/19/17 16:05 02/19/17 16:05 02/19/17 16:05 02/19/17 16:05 Intake and Output: 02/19/17 02/19/17 06:59 18:59 Intake Total 1260 1350 Balance 1260 1350 - Medications Medications: Current Medications Enoxaparin Sodium (Lovenox) 40 mg SC DAILY [facility] Last Admin: 02/19/17 09:40 Dose: 40 mg Fentanyl (Duragesic) 1 patch TD Q72H [facility] Last Admin: 02/18/17 12:42 Dose: 1 patch Folic Acid (Folic Acid) 1 mg PO DAILY [facility] Last Admin: 02/19/17 09:40 Dose: 1 mg Hydromorphone HCl (Dilaudid) 2 mg IVP Q3H PRN PRN Reason: Pain, severe (8-10) Last Admin: 02/19/17 13:57 Dose: 2 mg Dextrose/Sodium Chloride (Dextrose 5%/0.45% Ns 1000 Ml) 1,000 mls @ 75 mls/hr IV .[id number] [facility] Last Admin: 02/19/17 13:56 Dose: Not Given Levothyroxine Sodium (Synthroid) 100 mcg PO DAILY@0630 [facility] Last Admin: 02/19/17 06:22 Dose: 100 mcg Montelukast Sodium (Singulair) 10 mg PO HS [facility] Last Admin: 02/18/17 21:11 Dose: 10 mg Ondansetron HCl (Zofran Inj) 4 mg IVP Q6 PRN PRN Reason: Nausea/Vomiting Last Admin: 02/17/17 21:30 Dose: 4 mg - Labs Labs: 02/19/17 07:35 02/19/17 07:35 Assessment and Plan (1) 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 Have discussed results with patient, she will follow up as outpatient Status: Acute
[2017-02-20] MEDS: Levothyroxine 100 MCG TAB PO SCH (05:55)
--- NOTE | 2017-02-20 09:00 | CP.PCM.PN ---
Subjective - Date & Time of Evaluation Date of Evaluation: 02/20/17 Time of Evaluation: 08:25 - Subjective Subjective: Pt pain is much better; Had loose stool since yesterday. Not foul smelling, no blood. NOP CP, no SOB, no edema; no cough Objective - Vital Signs/Intake and Output Vital Signs (last 24 hours): Temp Pulse Resp BP Pulse Ox 97.8 F 79 20 124/89 97 02/20/17 07:00 02/20/17 07:00 02/20/17 07:00 02/20/17 07:00 02/20/17 07:00 Intake and Output: 02/20/17 02/20/17 06:59 18:59 Intake Total 1200 450 Balance 1200 450 - Medications Medications: Current Medications Enoxaparin Sodium (Lovenox) 40 mg SC DAILY [facility] Last Admin: 02/19/17 09:40 Dose: 40 mg Fentanyl (Duragesic) 1 patch TD Q72H [facility] Last Admin: 02/18/17 12:42 Dose: 1 patch Folic Acid (Folic Acid) 1 mg PO DAILY [facility] Last Admin: 02/19/17 09:40 Dose: 1 mg Hydromorphone HCl (Dilaudid) 2 mg IVP Q3H PRN PRN Reason: Pain, severe (8-10) Last Admin: 02/20/17 05:55 Dose: 2 mg Dextrose/Sodium Chloride (Dextrose 5%/0.45% Ns 1000 Ml) 1,000 mls @ 75 mls/hr IV .[id number] [facility] Last Admin: 02/19/17 13:56 Dose: Not Given Levothyroxine Sodium (Synthroid) 100 mcg PO DAILY@0630 [facility] Last Admin: 02/20/17 05:55 Dose: 100 mcg Montelukast Sodium (Singulair) 10 mg PO HS [facility] Last Admin: 02/19/17 21:48 Dose: 10 mg Ondansetron HCl (Zofran Inj) 4 mg IVP Q6 PRN PRN Reason: Nausea/Vomiting Last Admin: 02/17/17 21:30 Dose: 4 mg - Labs Labs: 02/19/17 07:35 02/19/17 07:35 - Constitutional Appears: No Acute Distress - Eye Exam Eye Exam: Normal appearance - ENT Exam ENT Exam: Mucous Membranes Moist - Neck Exam Neck Exam: Full ROM. absent: Lymphadenopathy, Thyromegaly - Respiratory Exam Respiratory Exam: Clear to Ausculation Bilateral. absent: Rales, Rhonchi, Wheezes - Cardiovascular Exam Cardiovascular Exam: REGULAR RHYTHM, +S1, +S2, Murmur. absent: Gallop, JVD - GI/Abdominal Exam GI & Abdominal Exam: Soft. absent: Tenderness, Mass - Extremities Exam Extremities Exam: Full ROM, Normal Capillary Refill. absent: Calf Tenderness, Joint Swelling, Pedal Edema Assessment and Plan - Assessment and Plan (Free Text) Assessment: Sickle Cell Pain Crisis; hypothyroidism Diarrhea Cont meds discharge if C diff negative
[2017-02-20] MEDS: Enoxaparin 40 mg Syringe SC SCH (09:57)
[2017-02-20] MEDS: Dextrose 5%/0.45% NS 1,000 ML IV SCH ×2 (10:02→15:05)
[2017-02-20] MEDS ORDERED: Pneumococcal 23-Valent Vaccine IM ONE (12:00)
--- NOTE | 2017-02-20 14:29 | CP.PCM.PN ---
Subjective - Date & Time of Evaluation Date of Evaluation: 02/20/17 Time of Evaluation: 14:29 Objective - Vital Signs/Intake and Output Vital Signs (last 24 hours): Temp Pulse Resp BP Pulse Ox 97.8 F 79 20 124/89 97 02/20/17 07:00 02/20/17 07:00 02/20/17 07:00 02/20/17 07:00 02/20/17 07:00 Intake and Output: 02/20/17 02/20/17 06:59 18:59 Intake Total 1200 450 Balance 1200 450 - Medications Medications: Current Medications Enoxaparin Sodium (Lovenox) 40 mg SC DAILY [facility] Last Admin: 02/20/17 09:57 Dose: 40 mg Fentanyl (Duragesic) 1 patch TD Q72H [facility] Last Admin: 02/18/17 12:42 Dose: 1 patch Folic Acid (Folic Acid) 1 mg PO DAILY [facility] Last Admin: 02/20/17 09:57 Dose: 1 mg Hydromorphone HCl (Dilaudid) 2 mg IVP Q3H PRN PRN Reason: Pain, severe (8-10) Last Admin: 02/20/17 05:55 Dose: 2 mg Dextrose/Sodium Chloride (Dextrose 5%/0.45% Ns 1000 Ml) 1,000 mls @ 75 mls/hr IV .[id number] [facility] Last Admin: 02/20/17 10:02 Dose: 75 mls/hr Levothyroxine Sodium (Synthroid) 100 mcg PO DAILY@0630 [facility] Last Admin: 02/20/17 05:55 Dose: 100 mcg Montelukast Sodium (Singulair) 10 mg PO HS [facility] Last Admin: 02/19/17 21:48 Dose: 10 mg Ondansetron HCl (Zofran Inj) 4 mg IVP Q6 PRN PRN Reason: Nausea/Vomiting Last Admin: 02/17/17 21:30 Dose: 4 mg - Labs Labs: 02/19/17 07:35 02/19/17 07:35
--- NOTE | 2017-02-20 15:03 | CP.PCM.PN ---
Subjective - Date & Time of Evaluation Date of Evaluation: 02/20/17 Time of Evaluation: 14:45 - Subjective Subjective: [employer] NOTES Pt seen today states feel better pain improved, c/o diarrhea, watery x 3 , no odor Dr. Vazquez seen pt today and ordered c- dif and if negative patient can be discharged home today Gordon. Lock informed that to stop the test for c- dif because patient received laxative D/W Dr. Vazquez, recommends to run the test r/o c- dif for safe ( pt received rocephin and been in the hospital for 6 days ) will follow the result and negative , will discharge home today Objective - Vital Signs/Intake and Output Vital Signs (last 24 hours): Temp Pulse Resp BP Pulse Ox 97.8 F 79 20 124/89 97 02/20/17 07:00 02/20/17 07:00 02/20/17 07:00 02/20/17 07:00 02/20/17 07:00 Intake and Output: 02/20/17 02/20/17 06:59 18:59 Intake Total 1200 450 Balance 1200 450 - Medications Medications: Current Medications Enoxaparin Sodium (Lovenox) 40 mg SC DAILY [facility] Last Admin: 02/20/17 09:57 Dose: 40 mg Fentanyl (Duragesic) 1 patch TD Q72H [facility] Last Admin: 02/18/17 12:42 Dose: 1 patch Folic Acid (Folic Acid) 1 mg PO DAILY [facility] Last Admin: 02/20/17 09:57 Dose: 1 mg Hydromorphone HCl (Dilaudid) 2 mg IVP Q3H PRN PRN Reason: Pain, severe (8-10) Last Admin: 02/20/17 05:55 Dose: 2 mg Dextrose/Sodium Chloride (Dextrose 5%/0.45% Ns 1000 Ml) 1,000 mls @ 75 mls/hr IV .[id number] [facility] Last Admin: 02/20/17 10:02 Dose: 75 mls/hr Levothyroxine Sodium (Synthroid) 100 mcg PO DAILY@0630 [facility] Last Admin: 02/20/17 05:55 Dose: 100 mcg Montelukast Sodium (Singulair) 10 mg PO HS [facility] Last Admin: 02/19/17 21:48 Dose: 10 mg Ondansetron HCl (Zofran Inj) 4 mg IVP Q6 PRN PRN Reason: Nausea/Vomiting Last Admin: 02/17/17 21:30 Dose: 4 mg - Labs Labs: 02/19/17 07:35 02/19/17 07:35
[2017-02-20 16:04] VITALS: BP 123/86; PULSE 110; RESP 19; TEMP 97.9; O2SAT 100
[2017-02-21 17:45] LABS: HEMOGLOBIN F 4.1 Percent (<2.0)
== END 2017-02-20 18:43 | disposition home or self-care (01) | DRG 812 ==
LOC: C.ER 00:19 → C.9E 06:03 → C.5S 06:40
PROVIDERS: ADMIT Internal Medicine; ATTEND Internal Medicine
PROC: 30233N1 Transfusion of Nonautologous Red Blood Cells into Peripheral Vein, Percutaneous Approach (ICD-10-PCS; principal; 2017-02-18)
DX: D57.419 Sickle-cell thalassemia, unspecified, with crisis (principal); D72.819 Decreased white blood cell count, unspecified; E03.9 Hypothyroidism, unspecified; E87.6 Hypokalemia; N92.6 Irregular menstruation, unspecified; K59.00 Constipation, unspecified; R19.7 Diarrhea, unspecified; Z90.49 Acquired absence of other specified parts of digestive tract; Z87.891 Personal history of nicotine dependence

== ENCOUNTER 2017-08-20 12:12 | Emergency (ER) | payer OTHER ==
[2017-08-20 12:12] VITALS: BMI 31.7
[2017-08-20] MEDS ORDERED: Dexamethasone 4 mg/1 ml IM STA (13:09)
--- NOTE | 2017-08-20 14:09 | RAD ---
PROCEDURE: Radiographs of the Lumbar Spine. HISTORY: Fall with low back pain. POC negative COMPARISON: No prior. FINDINGS: BONES: Normal alignment. No listhesis. No fracture. DISC SPACES: . There is some minor posterior disc space narrowing seen at the L5-S1 level with small posterior marginal osteophyte formation. Additionally, small marginal anterior osteophytes seen at a few additional levels. OTHER FINDINGS: In situ umbilical ring IMPRESSION: No acute fractures.
[2017-08-20 14:16] LABS: SQUAMOUS EPITHIAL 6 /hpf (0-5); URINE BACTERIA RARE (<OCC); URINE BILIRUBIN NEGATIVE (NEGATIVE); URINE BLOOD NEGATIVE (NEGATIVE); URINE CLARITY Hazy (Clear); URINE COLOR Yellow (YELLOW); URINE GLUCOSE (UA) NORMAL (Normal); URINE LEUKOCYTE ESTERASE NEG Leu/uL (Negative); URINE PROTEIN NEGATIVE (NEGATIVE)
--- NOTE | 2017-08-20 14:37 | C.PDOC ---
History Of Present Illness 37 year old female presents to the ER with a complaint of lower back pain. 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 She as able to finish her shift, however, the pain has progressively been worsening today which prompted visit. Patient notes the pain worsens with movement and walking. Denies dysuria, hematuria, incontinence, weakness, or numbness. Time Seen by Provider: 08/20/17 12:31 Chief Complaint (Nursing): Back Pain History Per: Patient History/Exam Limitations: no limitations Onset/Duration Of Symptoms: Days Current Symptoms Are (Timing): Still Present Quality Of Discomfort: Unable To Describe Previous Symptoms: None Associated Symptoms: None Exacerbating Factor(s): Movement, Other (Walking) Recent travel outside of the [place] States: No Past Medical History Reviewed: Historical Data, Nursing Documentation, Vital Signs Vital Signs: Last Vital Signs Temp 98.9 F 08/20/17 14:47 Pulse 95 H 08/20/17 14:47 Resp 20 08/20/17 14:47 BP 122/87 08/20/17 14:47 Pulse Ox 99 08/20/17 18:08 - Medical History PMH: Anemia, Hypothyroidism, Sickle Cell Disease Surgical History: Cholecystectomy (03/2014) - [facility] TRANSFUSE NONAUT RED BLOOD CELLS IN PERIPH VEIN, PERC (02/14/17) Family History: States: Hypertension - Social History Hx Alcohol Use: Yes Hx Substance Use: No - Immunization History Hx Tetanus Toxoid Vaccination: Yes Hx Influenza Vaccination: Yes Hx Pneumococcal Vaccination: No Review Of Systems Genitourinary: Negative for: Dysuria, Incontinence, Hematuria Musculoskeletal: Positive for: Back Pain Neurological: Negative for: Weakness, Numbness Physical Exam - Physical Exam Appears: Non-toxic Skin: Normal Color, Warm, Dry Head: Atraumatic, Normacephalic Eye(s): bilateral: Normal Inspection Chest: Symmetrical, No Tenderness Cardiovascular: Rhythm Regular Respiratory: Normal Breath Sounds, No Rales, No Rhonchi, No Wheezing Gastrointestinal/Abdominal: Soft, No Tenderness Back: Paraspinal Tenderness (Diffuse), Straight Leg Raising (Positive right leg at 45 degrees) Extremity: Normal ROM (x4) Neurological/Psych: Oriented x3, Normal Speech Gait: Steady ED Course And Treatment O2 Sat by Pulse Oximetry: 99 (Room air) Pulse Ox Interpretation: Normal - Other Rad LS spine x-ray X-Ray: Viewed By Me, Read By Radiologist Interpretation: IMPRESSION: No acute fractures. Medical Decision Making Medical Decision Making: Urinalysis and LS spine x-ray ordered, result were negative. Decadron, flexeril , and toradol administered. On re-exam, the patient reports improvement of symptoms. Lungs are CTA, heart is RRR, abdomen is soft, non-tender and tolerating PO well. Ambulatory in the ED with steady. Follow up with the medical doctor within 1-2 days. Return if worsened. Disposition - Disposition Referrals: Jorge Mace MD [Non-Staff] - Disposition: HOME/ ROUTINE Disposition Time: 14:35 Condition: GOOD Additional Instructions: Follow up with the medical doctor within 1-2 days. 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 - Scribe Statement The provider has reviewed the documentation as recorded by the Scribe Wayne Herrera All medical record entries made by the Scribe were at my direction and personally dictated by me. I have reviewed the chart and agree that the record accurately reflects my personal performance of the history, physical exam, medical decision making, and the department course for this patient. I have also personally directed, reviewed, and agree with the discharge instructions and disposition.
[2017-08-20 14:47] VITALS: BP 122/87; PULSE 95; RESP 20; TEMP 98.9
[2017-08-20 14:49] VITALS: O2SAT 99
== END 2017-08-20 14:55 | disposition home or self-care (01) ==
LOC: C.ER 12:12
DX: S39.012A Strain of muscle, fascia and tendon of lower back, initial encounter (principal); X50.9XXA Other and unspecified overexertion or strenuous movements or postures, initial encounter
CPT/HCPCS: 72100; 81001; 96372; 99284; J1100; J1885